=== PATIENT | female | born 1925 | race Caucasian/White ===

== ENCOUNTER → 2016-08-01 | Outpatient (CLI) | payer OTHER ==
[~2016-08-01] MED LIST: CARVEDILOL3.125 MG PO; GABAPENTIN300 MG PO; LEVOTHYROXINE88 MCG PO; LORAZEPAM0.5 MG PO; SYMBICORT60 INHALA1 IH; VICODIN 5-3001 EACH PO; WARFARIN SODIU2.5 MG PO; WARFARIN SODIUM2 MG PO
== END | disposition home or self-care (01) ==
DX: R26.2 Difficulty in walking, not elsewhere classified (principal); M16.11 Unilateral primary osteoarthritis, right hip; M25.551 Pain in right hip; M25.651 Stiffness of right hip, not elsewhere classified; M62.81 Muscle weakness (generalized)
CPT/HCPCS: 97110 GP; 97150 GO; 97161 GP; 97165 GO; G8978 GP; G8979 GP; G8980 GP; G8990 GO; G8991 GO; G8992 GO

== ENCOUNTER 2016-10-28 23:41 | Inpatient (IN) | payer OTHER ==
[~2016-10-28] VITALS: Ht 157.5 cm; Wt 53.7 kg
[2016-10-29] VITALS (7 sets, daily range): BP systolic 116–149; BP diastolic 57–99
[2016-10-29 00:28] LABS: BASOPHIL COUNT 0.1 K/uL (0-0.1); EOSINOPHIL (%) 0.6 % (0-5); EOSINOPHIL COUNT 0.1 K/uL (0-0.3); HEMATOCRIT 42.4 % (36.0-46.0); IMMATURE GRANULOCYTE (%) 0.1 % (0.0-0.7); INSTRUMENT ABS NEUTROPHIL CT 6.3 K/uL; LYMPHOCYTE COUNT 1.1 K/uL (1.0-2.8); MCH 30.9 PG (29.0-34.0); MCHC 33.7 G/DL (30.0-36.0); MCV 91.6 FL (83-99); MEAN PLAT.VOLUME 9.2 uM^3 (9.5-12.4); MONOCYTE (%) 4.4 % (3-12); MONOCYTE COUNT 0.4 K/uL (0-0.8); NEUTROPHIL (%) 79.9 % (45-76); NEUTROPHIL COUNT 6.3 K/uL (1.8-6.4); PLATELET COUNT 205 K/uL (156-360); RBC DIS.WIDTH-CV 15.8 % (11.8-14.6); RBC DIS.WIDTH-SD 53.1 % (39-53); RED BLOOD COUNT 4.63 M/uL (3.80-5.20); WHITE BLOOD COUNT 7.9 K/uL (4.1-10.2)
[2016-10-29 00:40] LABS: INTER. NORMALIZED RATIO 2.2; PROTHROMBIN TIME 25.2 SEC (10.2-12.9)
[2016-10-29 00:54] LABS: CHLORIDE 98 mEq/L (99-109); POTASSIUM 4.3 mEq/L (3.7-5.4); SODIUM 136 mEq/L (136-147)
[2016-10-29 00:56] LABS: GLUCOSE 134 mg/dL (70-99)
[2016-10-29 00:57] LABS: ANION GAP 12 MEQ/L (2-14)
[2016-10-29 00:58] LABS: TOTAL BILIRUBIN 0.4 mg/dL (0.0-1.0)
[2016-10-29 00:59] LABS: ALKALINE PHOSPHATASE 82 IU/L (3-129)
[2016-10-29 01:00] LABS: GFR ESTIMATE (CALCULATED) 55 mL/min/
[2016-10-29 01:01] LABS: UREA NITROGEN (BUN) 15 mg/dL (9-23)
[2016-10-29 01:03] LABS: LIPASE 23 U/L (1.0-51.0)
[2016-10-29 01:10] LABS: TROP-I INTERPRETATION NEGATIVE; TROPONIN-I < 0.01 ng/mL (0.0-0.30)
[2016-10-29 02:01] LABS: ADD MIUA? YES; BILIRUBIN NEGATIVE; BLOOD SMALL; COLOR YELLOW ((YELLOW)); GLUCOSE (STRIP) NEGATIVE; KETONES NEGATIVE; LEUKOCYTES NEGATIVE; NITRITE NEGATIVE; PROTEIN (STRIP) 30; SPECIFIC GRAVITY 1.021 (1.000-1.030); UROBILINOGEN 0.2 MG/DL (0.2-1.0)
[2016-10-29 02:23] LABS: BACTERIA NONE SEEN /HPF; EPITHELIAL CELLS RARE /HPF; MUCUS TRACE /LPF; UCUL ADDED? NO; WHITE BLOOD CELLS 0-5 /HPF (0-5)
[2016-10-29 07:39] LABS: INTER. NORMALIZED RATIO 2.5; PROTHROMBIN TIME 28.7 SEC (10.2-12.9)
[2016-10-29] MEDS ORDERED: PROAIR HFA8.5 GM IH (20:38)
[2016-10-29] MEDS ORDERED: BRIMONIDINE TART5 ML BOTH EYES (20:40)
[2016-10-30 05:42] VITALS: BP 105/53
[2016-10-30 07:45] VITALS: BP 137/72
[2016-10-30 07:53] LABS: HEMATOCRIT 35.2 % (36.0-46.0); MCH 30.7 PG (29.0-34.0); MCHC 32.7 G/DL (30.0-36.0); MCV 93.9 FL (83-99); MEAN PLAT.VOLUME 8.9 uM^3 (9.5-12.4); PLATELET COUNT 153 K/uL (156-360); PROTHROMBIN TIME 33.9 SEC (10.2-12.9); RBC DIS.WIDTH-CV 16.2 % (11.8-14.6); RBC DIS.WIDTH-SD 55.5 % (39-53); RED BLOOD COUNT 3.75 M/uL (3.80-5.20); WHITE BLOOD COUNT 5.4 K/uL (4.1-10.2)
[2016-10-30 07:56] LABS: ALKALINE PHOSPHATASE 44 IU/L (3-129); ANION GAP 3 MEQ/L (2-14); CHLORIDE 108 MEQ/L (99-109); GFR ESTIMATE (CALCULATED) > 59 mL/min/; SAMPLE HEMOLYSIS CHECK 0; SAMPLE ICTERIC CHECK 0; SAMPLE LIPEMIA CHECK 0; SODIUM 138 MEQ/L (136-147); TOTAL BILIRUBIN 0.6 MG/DL (0.0-1.0); UREA NITROGEN (BUN) 8 mg/dL (9-23)
[2016-10-30 07:59] LABS: GLUCOSE 89 mg/dL (70-99)
[2016-10-30 11:43] VITALS: BP 142/68
[2016-10-30] MEDS ORDERED: NICOTINE PATCH1 EACH TD (13:02)
[2016-10-30] MEDS ORDERED: SENNA PLUS TAB1 EACH PO (13:03)
[2016-10-30] MEDS ORDERED: BISAC-EVAC10 MG PR (13:03)
[2016-10-30] MEDS ORDERED: COLACE CLEAR50 MG PO (13:08)
== END 2016-10-30 14:13 | disposition home or self-care (01) | DRG 390 ==
LOC: EME 23:41 → EDOF 10-29 03:10 → ENRESERV 10-29 03:13 → 2EASTP 10-29 04:30
PROVIDERS: Emergency Medicine; Physician Assistant Medical
DX: K56.60 Unspecified intestinal obstruction (principal); J44.9 Chronic obstructive pulmonary disease, unspecified; F41.9 Anxiety disorder, unspecified; I48.2 Chronic atrial fibrillation; E03.9 Hypothyroidism, unspecified; F17.210 Nicotine dependence, cigarettes, uncomplicated; Z96.642 Presence of left artificial hip joint; R10.0 Acute abdomen; Z66 Do not resuscitate; K21.9 Gastro-esophageal reflux disease without esophagitis; R32 Unspecified urinary incontinence; R79.1 Abnormal coagulation profile; T45.515A Adverse effect of anticoagulants, initial encounter; M81.0 Age-related osteoporosis without current pathological fracture; M19.90 Unspecified osteoarthritis, unspecified site; K52.9 Noninfective gastroenteritis and colitis, unspecified; K57.30 Diverticulosis of large intestine without perforation or abscess without bleeding; K80.20 Calculus of gallbladder without cholecystitis without obstruction; N20.0 Calculus of kidney; Z85.828 Personal history of other malignant neoplasm of skin; Z88.0 Allergy status to penicillin; Z88.1 Allergy status to other antibiotic agents; Z79.01 Long term (current) use of anticoagulants; Z86.718 Personal history of other venous thrombosis and embolism; Z82.49 Family history of ischemic heart disease and other diseases of the circulatory system
CPT/HCPCS: 71010; 74177; 80053; 81003; 83690; 84484; 85025; 85027; 85610; 85730; 93005; 94640; 94640 76; 94799; 99202; 99281; 99285; J2060; J2270; J2405; J2765; J3010; J7030; J7042; S0028

== ENCOUNTER → 2016-12-14 | Outpatient (CLI) | payer OTHER ==
[~2016-12-14] MED LIST changes: +BISAC-EVAC10 MG PR; +BRIMONIDINE TART5 ML BOTH EYES; +COLACE CLEAR50 MG PO; +NICOTINE PATCH1 EACH TD; +PROAIR HFA8.5 GM IH; +SENNA PLUS TAB1 EACH PO
== END | disposition home or self-care (01) ==
DX: R13.11 Dysphagia, oral phase (principal); R13.13 Dysphagia, pharyngeal phase; R05 Cough
CPT/HCPCS: 92611 GN; G8996 GN; G8997 GN; G8998 GN

== ENCOUNTER 2017-08-03 11:12 | Observation (INO) | payer OTHER ==
[~2017-08-03] VITALS: Ht 152.4 cm; Wt 52.7 kg
[2017-08-03 12:15] LABS: BASOPHIL (%) 0.5 % (0-1); EOSINOPHIL (%) 1.5 % (0-5); EOSINOPHIL COUNT 0.1 K/uL (0-0.3); HEMATOCRIT 28.6 % (36.0-46.0); HEMOGLOBIN 9.8 G/DL (11.9-15.5); IMMATURE GRANULOCYTE (%) 1.1 % (0.0-0.7); LYMPHOCYTE (%) 16.3 % (15-42); LYMPHOCYTE COUNT 1.2 K/uL (1.0-2.8); MCH 31.8 PG (29.0-34.0); MCHC 34.3 G/DL (30.0-36.0); MCV 92.9 FL (83-99); MONOCYTE COUNT 0.6 K/uL (0-0.8); NEUTROPHIL (%) 72.6 % (45-76); NEUTROPHIL COUNT 5.4 K/uL (1.8-6.4); PLATELET COUNT 347 K/uL (156-360); RBC DIS.WIDTH-CV 15.4 % (11.8-14.6); RBC DIS.WIDTH-SD 52.3 % (39-53); RED BLOOD COUNT 3.08 M/uL (3.80-5.20); WHITE BLOOD COUNT 7.5 K/uL (4.1-10.2)
[2017-08-03 12:21] LABS: INTER. NORMALIZED RATIO 2.9
[2017-08-03 12:23] LABS: ALBUMIN 3.5 g/dL (3.2-4.8); CHLORIDE 96 mEq/L (99-109); POTASSIUM 4.2 mEq/L (3.7-5.4); PTT 37.5 SEC (25-37); SODIUM 133 mEq/L (136-147)
[2017-08-03 12:26] LABS: GLUCOSE 75 mg/dL (70-99); TOTAL PROTEIN 6.4 g/dL (6.4-8.3)
[2017-08-03 12:28] LABS: TOTAL BILIRUBIN 0.3 mg/dL (0.0-1.0)
[2017-08-03 12:29] LABS: ALKALINE PHOSPHATASE 75 IU/L (3-129); CREATININE 0.7 mg/dL (0.6-1.3); GFR ESTIMATE (CALCULATED) > 59 mL/min/
[2017-08-03 12:30] LABS: UREA NITROGEN (BUN) 9 mg/dL (9-23)
[2017-08-03 12:31] LABS: AST (GOT) 14 IU/L (2-34)
[2017-08-03 12:32] LABS: ALT (GPT) 10 IU/L (3-49)
[2017-08-03 12:36] LABS: TROP-I INTERPRETATION NEGATIVE; TROPONIN-I 0.01 ng/mL (0.0-0.30)
[2017-08-03 13:46] LABS: APPEARANCE CLEAR ((CLEAR)); BILIRUBIN NEGATIVE; BLOOD NEGATIVE; COLOR STRAW ((YELLOW)); GLUCOSE (STRIP) NEGATIVE; KETONES NEGATIVE; LEUKOCYTES NEGATIVE; NITRITE NEGATIVE; PROTEIN (STRIP) NEGATIVE; SPECIFIC GRAVITY 1.005 (1.000-1.030); UCUL ADDED? NO; UROBILINOGEN 0.2 MG/DL (0.2-1.0)
[2017-08-03] MEDS ORDERED: JANTOVEN2.5 MG PO (14:24)
[2017-08-03] MEDS ORDERED: DULERA 100 MCG/13 GM IH (14:25)
[2017-08-03] MEDS ORDERED: ULTRAM50 MG PO (14:26)
[2017-08-03] MEDS ORDERED: TYLENOL EXTRA500 MG PO (14:27)
[2017-08-03 16:35] VITALS: BP 138/65
[2017-08-03 19:08] VITALS: BP 123/58
[2017-08-03 23:12] VITALS: BP 121/59
[2017-08-04 03:28] VITALS: BP 115/56
[2017-08-04 05:31] LABS: HEMATOCRIT 24.6 % (36.0-46.0); HEMOGLOBIN 8.1 G/DL (11.9-15.5); MCH 31.3 PG (29.0-34.0); MCHC 32.9 G/DL (30.0-36.0); PLATELET COUNT 317 K/uL (156-360); RBC DIS.WIDTH-CV 15.7 % (11.8-14.6); RBC DIS.WIDTH-SD 53.5 % (39-53); RED BLOOD COUNT 2.59 M/uL (3.80-5.20); WHITE BLOOD COUNT 6.5 K/uL (4.1-10.2)
[2017-08-04 05:53] LABS: CHLORIDE 105 MEQ/L (99-109); CREATININE 0.8 MG/DL (0.6-1.3); GFR ESTIMATE (CALCULATED) > 59 mL/min/; GLUCOSE 77 mg/dL (70-99); SODIUM 135 MEQ/L (136-147); UREA NITROGEN (BUN) 9 mg/dL (9-23)
[2017-08-04 08:37] VITALS: BP 105/60
[2017-08-04 12:21] VITALS: BP 102/64
[2017-08-04 13:50] LABS: INTER. NORMALIZED RATIO 2.5
[2017-08-04 16:05] VITALS: BP 136/63
== END 2017-08-04 16:42 | disposition home or self-care (01) ==
LOC: EME 11:12 → EDOF 14:15 → ENRESERV 14:18 → 4SOUTH 15:56
PROVIDERS: Emergency Medicine; Internal Medicine; Physician Assistant
DX: R42 Dizziness and giddiness (principal); D64.9 Anemia, unspecified; Z98.890 Other specified postprocedural states; Z96.643 Presence of artificial hip joint, bilateral; I48.91 Unspecified atrial fibrillation; M79.659 Pain in unspecified thigh; M79.604 Pain in right leg; M62.838 Other muscle spasm; E87.1 Hypo-osmolality and hyponatremia; J44.9 Chronic obstructive pulmonary disease, unspecified; Z86.718 Personal history of other venous thrombosis and embolism; Z79.01 Long term (current) use of anticoagulants; F41.9 Anxiety disorder, unspecified; F32.9 Major depressive disorder, single episode, unspecified; H91.90 Unspecified hearing loss, unspecified ear; Z85.828 Personal history of other malignant neoplasm of skin; Z87.891 Personal history of nicotine dependence; Z88.0 Allergy status to penicillin; Z88.1 Allergy status to other antibiotic agents; Z88.5 Allergy status to narcotic agent; Z66 Do not resuscitate
CPT/HCPCS: 70450; 71046; 80048; 80053; 81003; 82272; 84484; 85025; 85027; 85610; 85730; 93005; 93971; 94640; 99202; 99281; 99284; G0378; G8978 GP CJ; G8979 GP CH; J2405; J7030; J7040